=== PATIENT | female | born 2000 | race Native Hawaiian/Other Pacific Islander ===

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

== ENCOUNTER 2022-05-24 17:39 | Emergency (ER) | payer OTHER, BC ==
[~2022-05-24] VITALS: Ht 154.9 cm; Wt 59.9 kg
[2022-05-24 17:47] VITALS: BP 119/74; TEMP 98.8
== END 2022-05-24 19:41 | disposition home or self-care (01) ==
LOC: ED 17:39
PROC: 0HQFXZZ Repair Right Hand Skin, External Approach (ICD-10-PCS; principal; 2022-05-24)
DX: S61.011A Laceration without foreign body of right thumb without damage to nail, initial encounter (principal); W26.0XXA Contact with knife, initial encounter; Y93.G1 Activity, food preparation and clean up; Y92.89 Other specified places as the place of occurrence of the external cause; Y99.0 Civilian activity done for income or pay; Z23 Encounter for immunization
CPT/HCPCS: 80307; 90471; 90715; 99283; J7040

== ENCOUNTER 2022-09-10 09:57 | Outpatient (CLI) | payer BC | END 2022-09-10 19:27 | disposition home or self-care (01) | LOC: US 09:57 | PROVIDERS: ATTEND Nurse Practitioner Family | DX: Z97.5 Presence of (intrauterine) contraceptive device (principal) ==